=== PATIENT | female | born 1960 | race Two or more races ===

== ENCOUNTER → 2024-09-06 | Outpatient (CLI) | payer BC ==
[2024-09-06] VITALS (7 sets, daily range): BP systolic 156–177; BP diastolic 84–111; PULSE 89–109; RESP 13–21; O2SAT 92–94
[~2024-09-06] VITALS: Ht 167.6 cm; Wt 49.0 kg
[~2024-09-06] MED LIST: APIX5TAB PO; CYCL-611 PO; FAMOTIDINE (10MG/ML) 2ML VL IV ONE; GABA-1250 PO; HEPARIN SODIUM (PORCINE) 5000 UNITS/ML 1ML VIAL ONE; HYDR25TA88 PO; IOHEXOL 350 MG/ML 100ML IJ ONE; LIDOCAINE 2%HCL (LOCAL ANESTH.) INJ 10ml MDV ONE; LIDOCAINE 2%HCL (LOCAL ANESTH.) INJ 20ML MDV ONE; LOSA-535 PO; MIDAZOLAM HCL 2MG/2ML 2ml VIAL (1mg/ml) ONE; ONDA-180 PO; TRAM50TA2 PO; ceFAZolin 1GM/50ML 50 ML IV ONE; diphenhdrAMINE HCL 50 MG/1 ML VL ONE; fentaNYL CITRATE 100 MCG/2 ML VL ONE; methylPREDNISolone SOD SUCC 125 MG/2 ML VL ONE
--- NOTE | 2024-09-06 15:41 | DVH ---
XY Insertion of Venous Cath, HISTORY: PORT A CATH placement for metastatic disease PROCEDURE: Informed consent was obtained. The patient was placed supine on the interventional table. 1 gram of Ancef was given IV. A limited localization ultrasound of the right neck base was obtained. The right upper chest and neck base were prepped with chlorhexidine which was allowed to dry and drap ed in the usual sterile fashion. Time out was performed. With real-time ultrasound guidance, the inte rnal jugular vein was accessed with a micropuncture kit, and an image documenting patency sent to PAC S. However the microwire was meeting resistance going into the SVC. Contrast was then injected throug h the microsheath. A Andre catheter was used with a glide advantage wire in the azygous vein and contr ast was injected. The wire and catheter was then removed and manual compression held at the neck to h emostasis. Next, the right groin was prepped and drapped in sterile fashion. Ultrasound was used to a ccess the right common femoral vein and a micropuncture sheath was placed. Contrast injection was per formed to confirm patency of the veins. An amplatz wire was then placed into the IVC. The planned ski n tract and the port placement site were were infiltrated with lidocaine . The subcutaneous pocket wa s created with sharp and blunt dissection. The catheter was tunneled through the skin tract to the ne ck site. The [address] port was attached to the tubing flushed. The catheter was trimmed to desire d length on 37 cm. The right common femoral vein entrance site was serially dilated and the catheter was placed through a peel-a-way sheath. The port was flushed with heparinized saline and demonstrated satisfactory flow. The skin openings were sutured closed in 1 layers with Vicryl, as well as and Barney mabond, steristrips and then sterile dressings applied. A post procedure image was obtained. No immed iate complication was identified. DAP 83 mGy FLUOROSCOPY TIME: 4.2 minutes. Contrast used: 15 mL SEDATION: Dr. Arlet Mast was personally responsible for the administration of moderate sedation during the procedure performed, including the use of an independent trained observer who had no other duties during the procedure. The drugs utilized were IV fentanyl and versed (see nursing log for details). The total time of supervision by the attending physician was approximately 60 minutes. FINDINGS: Widely patent right internal jugular vein however venogram shows an occluded SVC. A small a zygous vein is visualized however was not suitable for placement of a port catheter. The right common femoral vein was patent. Contrast injection shows patency of the IVC. Post procedure image demonstr ates [id number] in the right lateral thigh with tip near the inferior cavoatrial junction. IMPRESSION: Occluded SVC precludes placement of a portacatheter on the chest. Small azygous vein is visualized however was not suitable for placement of a port catheter. Placement of 8 Jordanian x 37 cm right thigh [id number] with tip in the inferior cavoatrial junctio n.
== END | disposition home or self-care (01) ==
LOC: XYW 06:29
PROVIDERS: ATTEND Radiology Diagnostic Radiology
DX: C20 Malignant neoplasm of rectum (principal); Z88.8 Allergy status to other drugs, medicaments and biological substances; Z91.041 Radiographic dye allergy status
CPT/HCPCS: 36561; 76937; 77001; C1758; C1788; C1894; J0690; J1200; J1644; J2003; J2250; J2919; J3010; Q9967; 76942; 99152; J3490